=== PATIENT | female | born 1935 | race Caucasian/White ===

== ENCOUNTER 2018-01-01 00:02 | Emergency (ER) | payer MEDICARE ==
[2018-01-01 00:44] VITALS: BP 136/63
[2018-01-01] MEDS ORDERED: LIDOCAINE 1%/EPINEPHRINE INJ 20 ML VIAL INJ ONE (01:42)
--- NOTE | 2018-01-01 02:02 | ER Document Report ---
ED General - General Chief Complaint: Leg Injury Stated Complaint: LEFT CALF BLEEDING Time Seen by Provider: 01/01/18 01:37 Notes: Patient is a pleasant 82-year-old female who presents with complaint of a bleeding varices from her calf. She says she felt a little knot there and she picked out and it started bleeding. Paramedics were unable to get stop so they wrapped a compression dressing had the patient brought here. She has no other complaints at this time. TRAVEL OUTSIDE OF THE [place] IN LAST 30 DAYS: No - Related Data Allergies/Adverse Reactions: Iodinated Contrast- Oral and IV Dye Allergy (Verified 01/01/18 00:08) meperidine [From Demerol] Allergy (Verified 01/01/18 00:08) morphine Allergy (Verified 01/01/18 00:08) Past Medical History - Social History Smoking Status: Never Smoker Frequency of alcohol use: None Drug Abuse: None Family History: Reviewed & Not Pertinent Review of Systems - Review of Systems Notes: My Normal Review Basic REVIEW OF SYSTEMS: CONSTITUTIONAL : Denies fever, chills, or sweats. Denies recent illness. CARDIOVASCULAR: Denies chest pain. RESPIRATORY: Denies cough, cold, or chest congestion. Denies shortness of breath, difficulty breathing, or wheezing. MUSCULOSKELETAL: Bleeding from left calf. SKIN: Denies rash or skin lesions. NEUROLOGICAL: Denies altered mental status or loss of consciousness. Denies headache. Denies weakness or paralysis or loss of use of either side. Denies problems with gait or speech. Denies sensory or motor loss. ALL OTHER SYSTEMS REVIEWED AND NEGATIVE. Physical Exam - Vital signs Vitals: Temp Pulse Resp BP Pulse Ox 98.1 F 68 20 136/63 H 97 01/01/18 00:43 01/01/18 00:43 01/01/18 00:43 01/01/18 00:43 01/01/18 00:43 - Notes Notes: General Appearance: Well nourished, alert, cooperative, no acute distress, no obvious discomfort. Vitals: reviewed, See vital signs table. Extremities: strength 5/5 in all extremities, good pulses in all extremities, patient has a small area of bleeding on the left calf muscle. This is over a varicose vein. I first removed the bandage the bandage is soaked with blood but the area is no longer bleeding. She has a good exam and that this starts bleeding again. Distal pulses are intact. Good capillary refill in the toes of the left foot. Skin: warm, dry, appropriate color, no rash Neuro: speech clear, oriented x 3, normal affect, responds appropriately to questions. Course - Re-evaluation Re-evalutation: 01/01/18 05:29 Cleaned the area Shur-Clens. I injected lidocaine with epi around the varicose vein. I then placed a figure for suture to ligate the varicose vein. This gave complete control of bleeding. Patient tolerated procedure well. Patient discharged home and encouraged to have the suture removed in 5-7 days. She is to return to ER if she has recurrent bleeding. Patient agrees with plan will be discharged home. Dictation of this chart was performed using voice recognition software; therefore, there may be some unintended grammatical errors. - Vital Signs Vital signs: Temp Pulse Resp BP Pulse Ox 98 F 70 18 136/63 H 98 01/01/18 02:40 01/01/18 02:40 01/01/18 02:40 01/01/18 02:40 01/01/18 02:40 Procedures - Laceration/Wound Repair variceal bleed left calf Wound length (cm): 0 Wound's Depth, Shape: Other - variceal bleed Anesthetic type: 1% Lidocaine w/epi Volume Anesthetic (mLs): 1 Wound Repaired With: Sutures Suture Size/Type: 4:0, Ethilon Number of Sutures: 1 Complications: No Discharge - Discharge Clinical Impression: Bleeding from varicose vein Condition: Good Disposition: HOME, SELF-CARE Additional Instructions: Please remove the dressing in 24 hours. Please have the stitch removed in 5 to 7 days. Please return to the ER immediately if you have recurrent bleeding.
== END 2018-01-01 02:40 | disposition home or self-care (01) ==
LOC: ER 00:02
DX: I83.92 Asymptomatic varicose veins of left lower extremity (principal); Z88.6 Allergy status to analgesic agent
CPT/HCPCS: 99283; 35226; J3490